=== PATIENT | female | born 1990 | race Asian ===

== ENCOUNTER → 2021-10-18 | Emergency (ER) | payer BC ==
[~2021-10-18] VITALS: Ht 154.9 cm; Wt 58.5 kg
--- NOTE | 2021-10-18 17:31 | NUR ---
TO ER BED 16, BIBS C/O LOWER ABD PAIN 30MIN [employer]. AOG 17WKS . ALSO C/O PANIC/ANXIETY, AAOX3, BREATHING EVEN AND NON LABORED, AWAITING MD LUTZ
--- NOTE | 2021-10-18 18:34 | NUR ---
URINE COLLECTED AND SENT TO LAB
[2021-10-18 19:59] LABS: BASOPHILS # (AUTO) 0.1 K/uL (0.0-0.2); HEMATOCRIT 38 % (33-45); HEMOGLOBIN 12.5 g/dL (11.5-14.8); LYMPHOCYTES # (AUTO) 3.4 K/uL (0.8-4.8); LYMPHOCYTES % (AUTO) 28.7 % (20.0-44.0); MEAN CORPUSCULAR HGB CONC 33 g/dl (31.0-36.0); MEAN CORPUSCULAR VOLUME 91 fL (82-100); MONOCYTES # (AUTO) 0.6 K/uL (0.1-1.30); MONOCYTES % (AUTO) 5.3 % (2.0-12.0); NEUTROPHILS # (AUTO) 7.5 K/uL (1.8-8.9); PLATELET COUNT (AUTO) 355 K/uL (150-450); RED BLOOD CELL COUNT(AUTO) 4.18 MIL/uL (4.0-5.2); WHITE BLOOD COUNT (AUTO) 11.7 K/uL (4.3-11.0)
[2021-10-18 20:00] LABS: BILIRUBIN,URINE NEGATIVE (NEGATIVE); COLOR,URINE YELLOW (YELLOW); LEUKOCYTE ESTERASE ,URINE NEGATIVE (NEGATIVE); NITRITE, URINE NEGATIVE (NEGATIVE); PROTEIN,URINE NEGATIVE (NEGATIVE); UGLUCOSE NEGATIVE (NEGATIVE); UROBILINOGEN,URINE 0.2 EU/dL (0.2)
--- NOTE | 2021-10-18 20:09 | NUR ---
ACCUCHECK 88
[2021-10-18 20:12] LABS: ALBUMIN 3.8 g/dL (3.4-5.0); BILIRUBIN,DIRECT 0.1 mg/dL (0.0-0.2); BILIRUBIN,TOTAL 0.1 mg/dL (0.2-1.0); CALCIUM, SERUM 9.2 mg/dL (8.5-10.1); CREATININE 0.6 mg/dL (0.6-1.3); POTASSIUM 3.1 mmol/L (3.5-5.1)
--- NOTE | 2021-10-18 20:28 | NUR ---
Patient does not wish to proceed with medical care recommended by Dr. Vega. Patient given information related to possible complications, up to and including , which could occur as a result of leaving the hospital at this time. Patient verbalizes understanding of risks involved due to leaving against medical advice. Patient has signed AMA form.
[2021-10-18 20:38] VITALS: BP 128/82
== END | disposition home or self-care (01) ==
LOC: ER 17:31
DX: O99.342 Other mental disorders complicating pregnancy, second trimester (principal); F41.9 Anxiety disorder, unspecified; F45.8 Other somatoform disorders; R10.30 Lower abdominal pain, unspecified; F32.A Depression, unspecified; Z3A.18 18 weeks gestation of pregnancy
CPT/HCPCS: 36415; 76805-TC; 80048-TC; 80076-TC; 82962-TC; 84484-TC; 84702-TC; 85025-TC